=== PATIENT | male | born 1960 | race Caucasian/White ===

== ENCOUNTER 2019-09-09 07:36 | Emergency (ER) | payer OTHER, SELFPAY ==
[2019-09-09 07:37] VITALS: BP 110/70; PULSE 79; RESP 20; TEMP 36.2; O2SAT 95; BMI 29.7
[2019-09-09] MEDS: 0.9% Normal Saline 1,000 ML 1000 ML IV ×2 (08:00→12:57)
--- NOTE | 2019-09-09 08:08 | EKG12_ITS ---
Test Reason : NEAR SYNCOPE Blood Pressure : / mmHG Vent. Rate : 068 BPM Atrial Rate : 068 BPM P-R Int : 148 ms QRS Dur : 080 ms QT Int : 412 ms P-R-T Axes : 038 000 019 degrees QTc Int : 438 ms Normal sinus rhythm Normal ECG Confirmed by KAPIL BROWN ([id number]), managing editor KAMRAN DOUGLAS ([id number]) on 09/12/2019 11:54:09 AM Referred By: Confirmed By:KAPIL BROWN
[2019-09-09 08:19] VITALS: BP 113/74; PULSE 72; RESP 19; O2SAT 94
[2019-09-09 08:24] LABS: Absolute Lymphocyte Count 1.16 X10^3/uL (0.83-4.51); Absolute Neutrophil Count 2.6 X10^3/uL (2.0-7.7); Basophil# 0.02 X10^3/uL; Basophil% 0.5 % (0-1); Eosinophil# 0.03 X10^3/uL; Eosinophils% 0.7 % (0-5); Hematocrit 35.9 % (40-54); Hemoglobin 11.9 g/dL (13.0-16.5); Lymphocyte # 1.16 X10^3/ul (4.0); Lymphocyte % 26.9 % (19-41); Mean Corp Hgb Conc 33.1 g/dL (32-36); Mean Corpuscular Hgb 32.9 pg (27.0-32.0); Mean Corpuscular Volume 99.2 fL (80-94); Mean Platelet Vol. 11.3 fl (6.2-12.0); Monocyte% 11.6 % (0-10); NRBC Flagged by Analyzer 0 % (0-5); Neutrophil # 2.58 X10^3/uL (2.7-7.7); Neutrophil % 59.6 % (47-70); POSITIVE COUNT YES; Platelet Count 62 K/mm3 (150-450); RBC Distribution Width CV 12.7 % (11.6-14.6); RBC Distribution Width SD 45.6 fl (35.1-43.9); Red Blood Count 3.62 M/mm3 (4.6-6.2); White Blood Count 4.3 K/mm3 (4.4-11.0)
--- NOTE | 2019-09-09 08:30 | RAD_ITS ---
STUDY: X-RAY CHEST REASON FOR EXAM: Male, 59 years old. PT WITH NEAR SYNCOPAL EPISODE. EMESIS X1, TIGHTNESS IN STOMACH YESTERDAY TECHNIQUE: Single AP portable view of the chest. COMPARISON: None. FINDINGS: EKG electrodes are seen. Mild elevation of the right hemidiaphragm. The lungs are clear. There is no demonstrated pleural abnormality. Normal size heart. Normal mediastinum and torsten. Normal visualized pulmonary arteries. Normal visualized aortic arch and descending thoracic aorta. Normal visualized thoracic spine. Normal visualized ribs, clavicles, and shoulders. There is no demonstrated abnormality of the visualized soft tissue structures of the upper abdomen. RAD/Chest 1 View (Portable) IMPRESSION: Normal x-ray examination of the chest. Electronically Signed: Benedicto Murray, at 9:14 EDT , Service support ,
[2019-09-09 08:36] LABS: Differential Indicated SCAN CRITERIA MET
[2019-09-09 08:40] LABS: International Normalized Ratio 1.3; Partial Thromboplast Time 37.8 Seconds (24.1-36.2); Prothrombin Time (Protime)PT. 15.5 SECONDS (11.7-14.9)
[2019-09-09 08:52] LABS: ALB/GLOB Ratio 0.5 RATIO (0.9-2.4); AST(SGOT) 54 U/L (15-37); Alanine Aminotransfer ALT/SGPT 47 U/L (16-61); Albumin, Serum 2.5 g/dL (3.2-5.0); Alkaline Phosphatase 147 U/L (45-117); Anion Gap 7 (5-15); BUN 16 mg/dL (7-18); BUN/Creat Ratio 10.2 RATIO (10-20); Calcium,Total 8.7 mg/dL (8.5-10.1); Chloride 96 mmol/L (98-107); Creatinine, Serum 1.57 mg/dL (0.70-1.30); EST Glomerular Filtration Rate 48 mL/min (>60); Est Glom Filt Rate - Afr Amer 58 mL/min (>60); Estimated Creatinine Clearance 46.78 ml/min; Globulin 5.4 g/dL (2.2-4.2); Glucose 501 mg/dL (74-106); Potassium 4.3 mmol/L (3.5-5.1); Protein, Total 7.9 g/dL (6.4-8.2); Sodium Level 130 mmol/L (136-145)
[2019-09-09 09:00] LABS: Platelet Estimate MOD DEC (ADEQ)
[2019-09-09 10:24] VITALS: BP 112/67; PULSE 73; RESP 17; O2SAT 95
[2019-09-09 10:55] VITALS: BP 108/73; BP 114/89; BP 130/83; PULSE 103; PULSE 71; PULSE 79
[2019-09-09] MEDS: Insulin Lispro 100 UNIT/ML INSULN.PEN 15 UNIT SC (12:57)
[2019-09-09 13:09] LABS: Bacteria 0 SEEN /hpf (None Seen); Mucous, Urine 0 SEEN /hpf (<or=2+); White Blood Cells 0 SEEN /hpf (0-5)
[2019-09-09 13:10] LABS: Color, Urine Yellow (Yellow); Glucose, Dipstick 1000 mg/dl (Normal); Ketone-Dipstick Negative (Negative); Leukocyte Esterase-Dipstick Negative /ul (Negative); Nitrite-Dipstick Negative (Negative); Occult Blood-Urine 10 /ul (Negative); Protein-Dipstick Negative (Negative); Specific Gravity, Urine 1.005 (1.002-1.030); Urine Bilirubin Dipstick Negative (Negative); Urine Clarity Sl. Cloudy (Clear); Urine Urobilinogen Normal (Normal); Urine pH 6.5 (5.0 - 8.0)
[2019-09-09 13:19] LABS: Red Blood Cells-Urine 0-5 SEEN /hpf (0-5); Squamous Epithelial Cells - UA 0-5 SEEN /hpf (0-5)
[2019-09-09 13:29] VITALS: BP 130/88; PULSE 67; RESP 20; O2SAT 97
--- NOTE | 2019-09-09 13:39 | ED.DCSUM_ITS ---
- ER Visit Summary Date of Service: 09/09/19 Chief Complaint: Near syncope History of Present Illness: The patient is a 59 M who presents with a near syncopal episode that occurred today. Patient states he felt like everything went white but did not pass out. Patient states he has been feeling fatigued. Patient states he feels weak all over. Patient admits to breaking out into a sweat but denies any recent fevers or chills. Patient denies any chest pain or palpitations. Patient denies any shortness of breath or cough. Patient did have an episode of nausea and vomiting today. Patient states he has had some blood in his urine but currently has a doctor's appointment to get that checked. Physical Examination: Vital signs are stable. Patient is afebrile. Patient is in no acute distress. Oral mucosa is pink and moist. Neck is supple. Trachea is midline. There is no JVD. Heart was regular rate and rhythm. Lungs are clear and equal bilaterally. Abdomen is soft. Bowel sounds are normal. There is no tenderness. Extremities are intact. There is no calf tenderness or edema. Cranial nerves II through XII are intact. There are no focal motor or sensory deficits noted. Test Results: EKG showed normal sinus rhythm with a rate of 68. There are no acute ST or T wave changes. Comprehensive metabolic profile showed mild hyponatremia of 130. Glucose was elevated at 501. Creatinine was also slightly elevated at 1.57. Total bilirubin was slightly elevated at 1.9 and alk phos was slightly elevated at 47. Urinalysis does not show any evidence of urinary tract infection. Troponin was normal. Serum ketones were normal. Portable chest x- ray was obtained. There is no acute cardiopulmonary process. This was interpreted by the radiologist and myself. Emergency Department Course and Treatment: Orthostatic vital signs were obtained and were within normal limits. Patient was given IV fluids. Patient was given a dose of Humalog here. Patient was feeling better on reevaluation. Patient was instructed to continue his medications as previously prescribed. Patient was instructed to follow-up with his primary care physician in 5 to 7 days. Patient understood and was agreeable with the plan. All questions were answered. Disposition: Discharge home Impression: 1. Near syncope 2. Hyperglycemia This note was generated with [employer] dictation software. It may contain incorrect words, spelling, and punctuation that were not noted in review of the chart prior to signing ED Disposition - Plan for ED Patient: Disposition: Home or Assisted Living Diagnosis: Near syncope, Hyperglycemia Instructions: ED Diabetic Hyperglycemia, ED Near-Fainting Uncertain Cause Referrals: Shalom Sweeney MD [Primary Care Provider] - 3-5 Days
[2019-09-09 14:01] LABS: Bedside Glucose 325 mg/dL (70-110)
[2019-09-09 14:13] VITALS: BP 135/79; PULSE 71; RESP 16; O2SAT 98
== END 2019-09-09 14:14 | disposition home or self-care (01) ==
PROVIDERS: Emergency Provider Emergency Medicine; PCP Family Medicine
DX: R55 Syncope and collapse (principal); E11.65 Type 2 diabetes mellitus with hyperglycemia; E87.1 Hypo-osmolality and hyponatremia; R11.2 Nausea with vomiting, unspecified; R31.9 Hematuria, unspecified; Z72.0 Tobacco use; Z79.4 Long term (current) use of insulin; Z79.899 Other long term (current) drug therapy
CPT/HCPCS: 71045; 80053; 81001; 82009; 82962; 84484; 85025; 85610; 85730; 93005; 96360; 96361; 99285; J7030; A4216

== ENCOUNTER → 2019-12-16 16:38 | Outpatient (CLI) | payer OTHER, SELFPAY ==
[2019-12-16 18:37] LABS: International Normalized Ratio 1.3; Prothrombin Time (Protime)PT. 15.9 SECONDS (11.7-14.9)
[2019-12-16 18:38] LABS: Partial Thromboplast Time 42.8 Seconds (24.1-36.2)
[2019-12-16 19:05] LABS: ALB/GLOB Ratio 0.5 RATIO (0.9-2.4); AST(SGOT) 71 U/L (15-37); Alanine Aminotransfer ALT/SGPT 48 U/L (16-61); Albumin, Serum 2.6 g/dL (3.2-5.0); Alkaline Phosphatase 173 U/L (45-117); Anion Gap 8 (5-15); BUN 14 mg/dL (7-18); BUN/Creat Ratio 13.1 RATIO (10-20); Calcium,Total 8.4 mg/dL (8.5-10.1); Chloride 104 mmol/L (98-107); Creatinine, Serum 1.07 mg/dL (0.70-1.30); EST Glomerular Filtration Rate 75 mL/min (>60); Est Glom Filt Rate - Afr Amer 91 mL/min (>60); Globulin 5.7 g/dL (2.2-4.2); Glucose 203 mg/dL (74-106); Potassium 3.3 mmol/L (3.5-5.1); Protein, Total 8.3 g/dL (6.4-8.2); Sodium Level 135 mmol/L (136-145)
[2019-12-18 06:17] LABS: AFP, Tumor Marker 5.7 ng/mL (0.0-8.3)
[2019-12-18 09:36] LABS: Hepatitis B Surface Antigen Non-Reactive (Nonreactive); Hepatitis C Antibody Non-Reactive (Nonreactive)
== END ==
LOC: MTLAB 16:40
PROVIDERS: PCP Family Medicine; Referring Provider Internal Medicine Gastroenterology; Visit Provider Internal Medicine Gastroenterology
DX: K76.9 Liver disease, unspecified (principal)
CPT/HCPCS: 36415; 80053; 82105; 85610; 85730; 86803; 87340

== ENCOUNTER → 2023-02-09 | Outpatient (CLI) | payer OTHER, SELFPAY ==
--- NOTE | 2023-02-09 11:45 | US_ITS ---
PROCEDURE: Ultrasound guided paracentesis. DATE OF EXAMINATION: February 09, 2023. INDICATION: Male, 62 years old. Ascites. PHYSICIAN: Benedicto Murray M.D. TECHNIQUE: The risks, benefits, and alternatives to the procedure were explained to the patient. The specific risks of bleeding, infection, and damage to bowel were detailed and accepted. Witnessed informed consent was obtained. The abdomen was ultrasonographically surveyed. An appropriate pocket of fluid was identified at the right lower quadrant. The skin were cleaned and prepped in the usual sterile fashion. Using ultrasound guidance, the peritoneal cavity was accessed with a 5-[place] paracentesis needle/catheter system. The trocar was removed. A total of 8070 ml of claudia-colored fluid were removed from the peritoneal cavity. The catheter was removed and a sterile dressing was applied. The procedure was well tolerated. US/Paracentesis with US IMPRESSION: Ultrasound guided paracentesis. Electronically Signed: Benedicto Murray MD at 15:01 EST ,
[2023-02-09] MEDS: Lidocaine 2% (20 ml mdv) 20 ML Vial INFILT (12:07)
[2023-02-09 12:15] VITALS: BP 114/56; BP 121/69; BP 123/70; PULSE 65; PULSE 70; PULSE 72; RESP 18; TEMP 37; O2SAT 94; O2SAT 95; O2SAT 97
== END | disposition home or self-care (01) ==
PROVIDERS: PCP Student in an Organized Health Care Education/Training Program; Referring Provider Student in an Organized Health Care Education/Training Program; Visit Provider Student in an Organized Health Care Education/Training Program
DX: K74.60 Unspecified cirrhosis of liver (principal); R18.8 Other ascites
CPT/HCPCS: 49083